=== PATIENT | female | born 1955 | race Caucasian/White ===

== ENCOUNTER 2019-04-07 08:27 | Inpatient (IN) | payer BC, MEDICARE ==
[~2019-04-07] VITALS: Ht 160 cm; Wt 118.4 kg
[~2019-04-07 08:27] MED LIST: ASPIR-TRIN325 MG OR; FLEXERIL PO; HYDROCHLOROT25 MG OR; LORTAB 5 OR; METOPROL TAR25 MG PO; NAPROSYN500 MG PO; ULTRAM50 MG PO
[2019-04-07] MEDS ORDERED: AMLODIPINE5 MG PO (10:54)
[2019-04-07] MEDS ORDERED: CENTRUM PO (10:55)
[2019-04-07] MEDS ORDERED: FISH OIL1000 M2 PO (10:55)
[2019-04-07] MEDS ORDERED: CENTRUM SILVER PO (10:56)
[2019-04-12] VITALS (9 sets, daily range): BP systolic 125–151; BP diastolic 54–81
--- NOTE | 2019-04-12 11:23 | NUR ---
PT ARRIVED TO FLOOR @ 1110 VIA BED ACCOMPANIED BY HUGH MARTINEZ. PT. DROWSY, UNABLE TO OPEN EYES. ANSWERING QUESTIONS SLOWLY. REPORTS PAIN OF 8 ON SCALE OF 0-10 IN LEFT KNEE. VSS. O2 @ 2L VIA NC. LUNGS CLEAR. REPORTS LAST BM ON 04/10/19. DRSG TO LEFT KNEE CDI, GINNA WRAP IN PLACE. PILLOW/ICE PACK BEHIND LEFT KNEE. SCD TO RIGHT LLE. #20 RH INFUSING LR @ 100 ML/HR PER ORDERS. PT. NOT INTERESTED IN TAKING PO AT THIS TIME. PLAN OF CARE DISCUSSED. FALL PREACUTIONS REINFORCED. CALL LIGHT REVIEWED AND IN REACH. DIET ADVANCEMENT REVIEWED. REPORTING OF CONCERNS ENCOURAGED. PAIN MEDICATIONS AND SCHEDULES REVIEWED. PT STATES UNDERSTANDING. REINFORCEMENT WILL BE NEEDED ON INFORMATION.
--- NOTE | 2019-04-12 11:53 | NUR ---
xray at bedside. pt drowsy, reports pain to left knee. refused lunch at this time.
--- NOTE | 2019-04-12 12:07 | NUR ---
In to medicate pt for reports of 8/10 left knee pain. pt arouses to verbal stimuli. Attempted to instruct patient on use of IS. Pt rolling eyes during instruction. Pt states she just wants to sleep and be left alone as she did not get much sleep last night. Informed pt would attempt to let her sleep as much as possible however, would need to wake her periodically to make sure she is doing okay after anesthesia, patient again rolling eyes. denies any other needs.
--- NOTE | 2019-04-12 12:40 | NUR ---
PT UP TO BSC WITH MINIMAL ASSIST. VOIDED. TOLERATED WELL. COMPLAINTS OF NAUSEA. OFFERED MEDCIATION FOR NAUSEA, PATIENT REFUSED. PT REQUEST RICHIE TO SMELL FOR NAUSEA, KITCHEN NOTIFIED.
--- NOTE | 2019-04-12 13:47 | NUR ---
PT NOW RESTING WITH EYES CLOSED, APPEARS TO BE COMFORTABLE. RESP EASY.
--- NOTE | 2019-04-12 14:10 | NUR ---
PHYSICAL THERAPY AT BEDSIDE.
--- NOTE | 2019-04-12 16:18 | NUR ---
PATIENT RECEIVED EVAL AND EX INCLUDING QUAD AND GLUT SETS, HIP ROTATIONS, ANKLE PUMPS, LAQ. AM-PAC SCORE IS 14.
--- NOTE | 2019-04-12 19:15 | NUR ---
REPORT GIVEN BY AUGUSTIN REESE. PATIENT ALERT AND ORIENTED. EATING DINNER WITH FAMILY PRESENT. ASSESMENT COMPLETE AT THIS TIME. DRESSING INTACT. FALL PRECAUTIONS IN PLACE. PATIENT INFORMED TO CALL WITH ANY QUESTIONS OR CONERNS. PLAN OF CARE REVIEWED.
--- NOTE | 2019-04-13 00:28 | NUR ---
PATIENT AWAKE AND SITTING UP IN BED. USED BSC WITH WALKER. SOME DISCOMFORT EXPERIENCED. NO S/S OF DISTRESS NOTED. RESP EVEN AND UNLABORED.
--- NOTE | 2019-04-13 03:52 | NUR ---
PATIENT RESTING WITH EYES CLOSED. NO S/S OF DISTRESS NOTED. RESP EVEN AND UNLABORED.
[2019-04-13 04:40] VITALS: BP 139/77
[2019-04-13 05:27] LABS: HEMATOCRIT 35.5 % (37.0-47.0); HEMOGLOBIN 11.4 g/dl (12.0-16.0); IMMATURE GRANULOCYTES 0.4 % (0.0-5.0); MEAN CELL VOLUME 89.2 fL CALC (80.0-100.0); MEAN CORPUSCULAR HGB 28.6 pG CALC (26.0-32.0); MEAN CORPUSCULAR HGB CONC 32.1 g/L CALC (32.0-36.0); NEUT# 6.44 thou/uL (2.00-7.15); RED BLOOD COUNT 3.98 mill/uL (4.20-5.60); RED CELL DISTRI WIDTH 13.8 % (11.5-15.5)
[2019-04-13 05:52] LABS: ALBUMIN 3.4 g/dL (3.2-5.0); ALKALINE PHOSPHATASE 68 u/l (38-126); ANION GAP 13 (6-22 (CALC)); BILIRUBIN, TOTAL 0.4 mg/dL (0.0-1.4); BUN 14 mg/dL (8-23); BUN/CREATININE RATIO 22 (12-20 (CALC)); CARBON DIOXIDE 25 mmol/l (22-30); CHLORIDE 104 mmol/l (95-108); CREATININE 0.7 mg/dL (0.5-1.0); GFR > 60 ML/MIN (>=60 (CALC)); GFR FOR AFR.AMER. > 60 ML/MIN (>=60 (CALC)); MAGNESIUM 1.6 mg/dL (1.6-2.3); POTASSIUM 4.2 mmol/l (3.5-5.1); SGOT/AST 18 u/l (9-36); SODIUM 138 mmol/l (137-146); TOTAL PROTEIN 6.4 g/dL (6.3-8.2)
--- NOTE | 2019-04-13 07:00 | NUR ---
SHIFT CHANGE REPORT, PT AWAKE ALERT AND ORIENTED RESTING IN BED, C/O LEFT KNEE PAIN @ 5/10, DRESSING TO SURGICAL KNEE COVERED WITH GINNA WRAP, ICE PACKS IN USE, ALL NEEDS ADDRESSED, CALL CINTRON IN REACH.
[2019-04-13 07:26] VITALS: BP 115/64
[2019-04-13 11:35] VITALS: BP 129/50
--- NOTE | 2019-04-13 12:00 | NUR ---
SITTING UP IN RECLINER, AMBULATED IN ROOM WITH PHYSICAL THERAPIST AND TOLERATED WELL, ALL NEEDS MET/ADDRESSED.
--- NOTE | 2019-04-13 14:11 | NUR ---
Pt. seen this morning (10:35AM) for physical therapy consisting of therapeutic exercises and gait training. Pt. was found sitting up in recliner. Review of ex. consisted of ankle pumps, hip rotations, quad sets with tapping, heel slides and AAROM LAQ x 10 repetitions each exercise. Sit to stand done with SBA followed by gait training using RW 2x15 feet with CGA x1, short step on L is noted. V.c.'s provided for patterning. Pt. demonstrated good safety awareness with stand to sit using arms to lower herslef onto recliner. LE's elevated post treatment and call light left within reach. Pt. left without questions/concerns. AM-PAC 6 clicks score of 17.
--- NOTE | 2019-04-13 14:16 | NUR ---
PATIENT SEEN FOR P.T. FOR 45 MINUTES FOR GT, EX AND ADL'S. EX DONE WERE IN SITTING FOR LE ROM, DEEP BREATHING, AND STRENGTHENING. KNEE ROM POST EX WAS 0 TO 50 DEGREES. PATIENT WAS INSTRUCTED IN EX TO DO INDEP INCLUDING FREQUENT ANKLE PUMPS, LAQ, QUAD AND GLUT SETS. AND HEEL SLIDES. SHE APPEARED TO UNDERSTAND THE EX WELL. TRANSFER TRAINING (ADL) WAS DONE SIT TO AND FROM STAND AND TO AND FROM THE COMMODE. SHE IS COGNIZANT OF SAFETY TECHNIQUE AND WAS ABLE TO COMPLETE THE TRANSFERS WITH VERBAL CUING AND MIN ASSIST. PATIENT STATES SHE HAS A LOW TOILET AT HOME. SHE WILL REQUIRE A BSC AND A 2 WHEELED ROLLING WALKER AT HOME. THE THERAPIST SPOKE WITH THE WELDING ROD COATER WHO WILL ASSIST IN OBTAINING THESE ITEMS. GAIT TRAINING DONE WITH RW. ENDURANCE WAS 20 FEET LIMITED BY HER C/O OF GROGGINESS FROM THE MEDICATIONS. SHE REQUIRES CUING FOR PATTERNING. THE LEFT KNEE IS KEPT RIGID DURING SWING THRU. WE WILL CONTINUE TO WORK ON THIS. SHE APPEARED TO TOLERATE TREATMENT WELL AND WAS RETURNED TO THE CHAIR WITH THE TABLE AND THE CALL LIGHT WITHIN REACH. AM-PAC SCORE THIS PM IS 17 SUGGESTING HOME WITH HOME HEALTH.
[2019-04-13 14:35] VITALS: BP 124/50
--- NOTE | 2019-04-13 16:00 | NUR ---
RESTING IN BED, FAMILY MEMBERS VISITING, ALL NEEDS MET.
[2019-04-13 19:08] VITALS: BP 131/74
--- NOTE | 2019-04-13 19:30 | NUR ---
PT RESTING IN BED, NO SIGNS OF DISTRESS NOTED, RESP EVEN AND UNLABORED. PT ALERT AND ORIENTED X3, POD#1 DRESSING TO L KNEE CDI, NOTED TRACE EDEMA AND WARM TO TOUCH. DISCUSSED POC, PT TO PRACTICE HER EXCERSIZES GIVEN BY PHYSICAL THERAPY. IS AT BEDSIDE ENCOURAGED IT'S USE. PT HAS NOT HAD A BM; GIVEN WARM PRUNE JUICE. ASSESSMENT COMPLETED, CALL LIGHT IN REACH,CONTINUE TO MONITOR.
--- NOTE | 2019-04-13 20:52 | NUR ---
PT RETURNED FROM BATHROOM NO BM JUST PASSING GAS; SITTING IN RECLINER AT BEDSIDE. CALL LIGHT IN REACH,CONTINUE TO MONITOR.
--- NOTE | 2019-04-13 21:52 | NUR ---
PT ASSISTED BACK TO BED, MEDICATED FOR PAIN AT THIS TIME. CALL LIGHT IN REACH,CONTINUE TO MONITOR.
--- NOTE | 2019-04-14 00:21 | NUR ---
PT RESTING IN BED WITH EYES CLOSED, NO SIGNS OF DISTRESS NOTED, RESP EVEN AND UNLABORED. CALL LIGHT IN REACH,CONTINUE TO MONITOR.
[2019-04-14 04:21] VITALS: BP 122/65
--- NOTE | 2019-04-14 04:30 | NUR ---
PT AMBULATED TO BATHROOM WITH ASSISTANCE, PT VOICES NO NEEDS OR COMPLAINTS AT THIS TIME. CALL LIGHT IN REACH,CONTINUE TO MONITOR.
[2019-04-14 05:51] LABS: HEMATOCRIT 35.5 % (37.0-47.0); HEMOGLOBIN 11.1 g/dl (12.0-16.0); IMMATURE GRANULOCYTES 0.4 % (0.0-5.0); MEAN CELL VOLUME 90.1 fL CALC (80.0-100.0); MEAN CORPUSCULAR HGB 28.2 pG CALC (26.0-32.0); MEAN CORPUSCULAR HGB CONC 31.3 g/L CALC (32.0-36.0); NEUT# 6.58 thou/uL (2.00-7.15); RED BLOOD COUNT 3.94 mill/uL (4.20-5.60); RED CELL DISTRI WIDTH 13.8 % (11.5-15.5)
[2019-04-14 06:13] LABS: ALBUMIN 3.5 g/dL (3.2-5.0); ALKALINE PHOSPHATASE 75 u/l (38-126); ANION GAP 13 (6-22 (CALC)); BUN 11 mg/dL (8-23); BUN/CREATININE RATIO 18 (12-20 (CALC)); CARBON DIOXIDE 26 mmol/l (22-30); CHLORIDE 103 mmol/l (95-108); CREATININE 0.6 mg/dL (0.5-1.0); GFR > 60 ML/MIN (>=60 (CALC)); GFR FOR AFR.AMER. > 60 ML/MIN (>=60 (CALC)); MAGNESIUM 1.9 mg/dL (1.6-2.3); SGOT/AST 19 u/l (9-36); SODIUM 138 mmol/l (137-146); TOTAL PROTEIN 6.4 g/dL (6.3-8.2)
[2019-04-14 06:32] LABS: BILIRUBIN, TOTAL 0.6 mg/dL (0.0-1.4)
--- NOTE | 2019-04-14 07:00 | NUR ---
SHIFT CHANGE REPORT, PT AWAKE ALERT AND ORIENTED, C/O PAIN TO LEFT LATERAL LEG AND STATED SHE HAS BEEN AMBULATING TO BR AND TOLERATING WELL. WANTS TO KNOW WHETHER OR NOT SHE IS GOING HOME TODAY, ADVISED MD WILL BE ROUNDING LATER TO GIVE MORE INFO ON D/C PLANS. CALL CINTRON IN REACH.
[2019-04-14 07:19] VITALS: BP 141/71
[2019-04-14 08:59] VITALS: BP 141/71
--- NOTE | 2019-04-14 11:10 | NUR ---
Patient awake sitting in chair on entry. Reports feeling well. Patient reports that she has been completing her exercises daily and walking to restroom with supervision of nursing staff and rolling walker (2 wheeled). P.T provided knee exercise booklet and re-educated via TCs + VCs for quad sets, ankle pumps, active knee flexion. Pt demonstrated good understanding and agreed to perform as prescribed in her booklet. Pt then used the restroom, [id number] independently (did require help removing pillow from ankles but action of standing independent). Walked without LOB to bathroom w/supervision and used 2 wheeled walker well. Used bathroom, walked w/ 2 wheeled walkerto sink with supervision of PT. Patient then ambulated using 2WW out of room with supervision approx. 50ft without LOB. P.T instructing on appropriate gait mechanics as walking. Pt returned to chair, call button in reach. Patient left comfortable and happy. No concerns from patient. Pt did report she feels her bed may be too high at the moment. P.T. Informed D/C planning team who will contact physician and speak with patient about d/c plans. Despite ampac score, due to equipment required at home for safe d/c patient would benefit from ECF for safety until equipment can be provided. returned to room
--- NOTE | 2019-04-14 14:54 | NUR ---
The patient is ready for DC and requests home. She had originally had some problems with home equipment etc but these are resolved as she has a walker. a lower bed for sleeping and has help from a family memeber. Her actual PROM in the afternoon is 0-80 degrees. SHe has a good quad set and is SBA for bed mobility and transfers Patient is functionally ready to go home- Her Am Pac score is 19 indicating she would do well going home with HH
--- NOTE | 2019-04-14 16:51 | NUR ---
DRESSING REMOVED PER ORDER, THERE IS BLOODY DRAINAGE ON DRESSING AND WOUND IS CURRENTLY DRAINING, THERE ARE FLUID FILLE BLISTERS PROXIMAL TO THE SURGICAL INCISION. DR WALL'S OFFICE NOTIFIED BY LEAVING PHONE MESSAGE, ROLAND FROM HIS OFFICE RETURNED CALL, REQUEST TO SEND PICTURE OF WOUND, PICTURE SENT AND RESPONSE RECEIVED TO POP BLISTERS AND COVER WOUND. ORDER EXECUTED-WOUND COVERED WITH DSD.
--- NOTE | 2019-04-14 18:30 | NUR ---
Discharge instructions given. Patient verbalizes understanding of same. Discharged in fair condition via Wheelchair to Home with family. All belongings sent with pt.
== END 2019-04-14 18:18 | disposition home health service (06) | DRG 470 ==
LOC: MS2 04-12 06:25 → OR 04-12 07:30 → MS2 04-12 10:00
PROVIDERS: ADMIT Orthopaedic Surgery; ATTEND Internal Medicine Nephrology
PROC: 0SRD0J9 Replacement of Left Knee Joint with Synthetic Substitute, Cemented, Open Approach (ICD-10-PCS; principal; 2019-04-12)
PROC: 3E0T3BZ Introduction of Anesthetic Agent into Peripheral Nerves and Plexi, Percutaneous Approach (ICD-10-PCS; 2019-04-12)
DX: M17.12 Unilateral primary osteoarthritis, left knee (principal); I10 Essential (primary) hypertension; Z87.891 Personal history of nicotine dependence
CPT/HCPCS: J0131

== ENCOUNTER 2019-05-16 18:08 | Emergency (ER) | payer BC ==
[~2019-05-16] VITALS: Ht 160 cm; Wt 100.0 kg
[~2019-05-16 18:08] MED LIST changes: +AMLODIPINE5 MG PO; +CENTRUM PO; +CENTRUM SILVER PO; +FISH OIL1000 M2 PO
[2019-05-16 18:50] VITALS: BP 137/63
== END 2019-05-16 18:56 | disposition home or self-care (01) | DRG 566 ==
LOC: ED 18:08
PROC: 0HQHXZZ Repair Right Upper Leg Skin, External Approach (ICD-10-PCS; principal; 2019-05-16)
DX: S76.821A Laceration of other specified muscles, fascia and tendons at thigh level, right thigh, initial encounter (principal); I10 Essential (primary) hypertension; W26.8XXA Contact with other sharp object(s), not elsewhere classified, initial encounter; Y93.E8 Activity, other personal hygiene; Y92.009 Unspecified place in unspecified non-institutional (private) residence as the place of occurrence of the external cause